=== PATIENT | male | born 1940 | race Caucasian/White ===

== ENCOUNTER 2021-05-05 10:21 | Inpatient (IN) | payer MEDICARE, OTHER ==
[2021-05-05] VITALS (7 sets, daily range): BP systolic 94–116; BP diastolic 46–67
[~2021-05-05] VITALS: Ht 172.7 cm; Wt 83.0 kg
[2021-05-05 12:36] LABS: HEMOGLOBIN 11.9 gm/dL (14.0-18.0); MCH 29.1 pg (26.0-34.0); MCHC 32.1 g/dL (28.0-37.0); MCV 90.6 fL (80.0-100.0); MPV 10.2 fl. (7.2-11.1); RBC 4.08 mil/uL (4.50-6.00); RDW-CV 16.2 % (10.5-14.5)
[2021-05-05 12:46] LABS: CALCIUM 8.5 mg/dL (8.5-10.1); CREATININE 1.8 mg/dL (0.6-1.3)
[2021-05-05] MEDS ORDERED: ELIQUIS5 MG PO (13:52)
[2021-05-05] MEDS ORDERED: LIPITOR80 MG PO (13:52)
[2021-05-05] MEDS ORDERED: JARDIANCE10 MG PO (13:53)
[2021-05-05] MEDS ORDERED: LANTUS SUBQ (13:54)
[2021-05-05] MEDS ORDERED: SALONPAS1 EACH TRANSDERM (14:01)
[2021-05-05] MEDS ORDERED: PROAIR HFA8.5 GM INH (14:05)
[2021-05-05] MEDS ORDERED: TUMS200 MG PO (14:15)
[2021-05-05] MEDS ORDERED: VITAMIN D350 MCG PO (14:26)
[2021-05-05 15:44] LABS: URINE BLOOD 3+ (Negative); URINE CLARITY CLOUDY; URINE COLOR DARK YELLOW; URINE GLUCOSE-RANDOM 1+ (Negative); URINE KETONES NEGATIVE (Negative); URINE LEUKOCYTES-REFLEX 1+ (Negative); URINE NITRITE-REFLEX NEGATIVE (Negative); URINE PROTEIN 1+ (Negative); URINE SPECIFIC GRAVITY 1.025 (1.005-1.030); URINE UROBILINOGEN 0.2 E.U./dl (0.2-1.0)
[2021-05-05 15:45] LABS: HEMATOCRIT 35.3 % (42.0-52.0); HEMOGLOBIN 11.6 gm/dL (14.0-18.0); MCH 29.3 pg (26.0-34.0); MCHC 32.8 g/dL (28.0-37.0); MCV 89.4 fL (80.0-100.0); MPV 10.5 fl. (7.2-11.1); NUCLEATED RBCS 0 /100WBC; PLATELET COUNT* 174 thou/uL (150-400); RBC 3.95 mil/uL (4.50-6.00); RDW-CV 15.9 % (10.5-14.5); WBC 18.6 thou/uL (4.0-11.0)
[2021-05-05 15:45] LABS: URINE BILIRUBIN 1+ (Negative)
[2021-05-05 15:47] LABS: ICTOTEST (BILI CONFIRMATORY) Negative (Negative)
[2021-05-05 15:52] LABS: BACTERIA-REFLEX 1-9 Few /HPF (None Seen); CASTS None Seen /LPF (None Seen); CRYSTALS None Seen /LPF (None Seen); MUCUS 0-3 Light strn/LPF (None Seen); SQUAMOUS 4-10 Moderate /LPF (0-3); URINE RBC >20 Many /HPF (0-2); URINE WBC-REFLEX 6-15 Few /HPF (0-5)
[2021-05-05 15:56] LABS: ALBUMIN 1.6 g/dL (3.4-5.0); CALCIUM 8.4 mg/dL (8.5-10.1); CREATININE 1.8 mg/dL (0.6-1.3); MAGNESIUM 2.7 mg/dL (1.8-2.4); TOTAL BILIRUBIN 0.6 mg/dL (<0.1-1.0); TOTAL PROTEIN 6.7 g/dL (6.4-8.2)
[2021-05-05 16:00] LABS: POTASSIUM 2.9 mmol/L (3.5-5.1)
[2021-05-05 16:13] LABS: ABSOLUTE LYMPHOCYTES 2.6 thou/uL (0.8-5.3); ABSOLUTE MONOCYTES 0.7 thou/uL (0.0-1.2); ABSOLUTE NEUTROPHILS 15.3 thou/uL (1.6-8.1); MICROCYTES Occasional; PLATELET ESTIMATE ADEQUATE
[2021-05-05 16:14] LABS: LARGE PLATELETS RARE
[2021-05-06] VITALS: BP 110/51
[2021-05-06 04:00] VITALS: BP 97/50
[2021-05-06 04:12] LABS: HEMATOCRIT 31.9 % (42.0-52.0); HEMOGLOBIN 10.5 gm/dL (14.0-18.0); MCH 29.1 pg (26.0-34.0); MCHC 32.8 g/dL (28.0-37.0); MCV 88.5 fL (80.0-100.0); MPV 10.4 fl. (7.2-11.1); RBC 3.61 mil/uL (4.50-6.00); RDW-CV 16.4 % (10.5-14.5); WBC 15.8 thou/uL (4.0-11.0)
[2021-05-06 04:34] LABS: ALBUMIN 1.5 g/dL (3.4-5.0); APTT 32.3 Seconds (25.0-31.3); INR 1.8; POTASSIUM 3.4 mmol/L (3.5-5.1); PROTIME 17.9 Seconds (9.20-11.50); TOTAL BILIRUBIN 1.1 mg/dL (<0.1-1.0)
[2021-05-06 08:00] VITALS: BP 102/57
[2021-05-06 11:24] LABS: CALCIUM 8.3 mg/dL (8.5-10.1); POTASSIUM 4.1 mmol/L (3.5-5.1)
[2021-05-06 12:07] VITALS: BP 106/58
[2021-05-06 17:41] VITALS: BP 110/63
[2021-05-06 18:03] LABS: CALCIUM 8.2 mg/dL (8.5-10.1); CREATININE 1.9 mg/dL (0.6-1.3); POTASSIUM 3.3 mmol/L (3.5-5.1)
[2021-05-06 20:00] VITALS: BP 125/71
[2021-05-07] VITALS: BP 113/60
[2021-05-07 03:01] LABS: CALCIUM 8.1 mg/dL (8.5-10.1); CREATININE 1.8 mg/dL (0.6-1.3); POTASSIUM 3.4 mmol/L (3.5-5.1)
[2021-05-07 04:00] VITALS: BP 105/55
[2021-05-07 09:02] VITALS: BP 105/70
[2021-05-07 10:43] LABS: CREATININE 1.8 mg/dL (0.6-1.3); POTASSIUM 3.3 mmol/L (3.5-5.1)
[2021-05-07 10:55] LABS: HEMOGLOBIN 9.8 gm/dL (14.0-18.0); MCH 29.1 pg (26.0-34.0); PLATELET COUNT* 132 thou/uL (150-400)
[2021-05-07 10:56] LABS: ABSOLUTE EOSINOPHILS 0.1 thou/uL (0.0-0.7); ABSOLUTE LYMPHOCYTES 0.5 thou/uL (0.8-5.3); ABSOLUTE NEUTROPHILS 12.9 thou/uL (1.6-8.1); BASOPHILS 0.1 %; EOSINOPHILS 0.6 %; LYMPHOCYTES 3.5 %; MCHC 32.5 g/dL (28.0-37.0); MCV 89.4 fL (80.0-100.0); MONOCYTES 0.1 %; MPV 10.7 fl. (7.2-11.1); NUCLEATED RBCS 0 /100WBC; POLYS 95.7 %; RBC 3.35 mil/uL (4.50-6.00); RDW-CV 16.1 % (10.5-14.5); WBC 13.5 thou/uL (4.0-11.0)
[2021-05-07 13:00] VITALS: BP 111/59
[2021-05-07 18:56] VITALS: BP 95/50
[2021-05-07 19:26] LABS: CREATININE 1.8 mg/dL (0.6-1.3)
[2021-05-07 20:00] VITALS: BP 100/52
[2021-05-08] VITALS (7 sets, daily range): BP systolic 108–165; BP diastolic 52–113
[2021-05-08 15:29] LABS: ABSOLUTE EOSINOPHILS 0.1 thou/uL (0.0-0.7); ABSOLUTE LYMPHOCYTES 0.5 thou/uL (0.8-5.3); ABSOLUTE MONOCYTES 0.5 thou/uL (0.0-1.2); ABSOLUTE NEUTROPHILS 6.4 thou/uL (1.6-8.1); BASOPHILS 0.3 %; EOSINOPHILS 0.8 %; HEMATOCRIT 41.5 % (42.0-52.0); MCH 29.2 pg (26.0-34.0); MCHC 32.6 g/dL (28.0-37.0); MCV 89.7 fL (80.0-100.0); MONOCYTES 7.2 %; MPV 9.9 fl. (7.2-11.1); NUCLEATED RBCS 0 /100WBC; PLATELET COUNT* 86 thou/uL (150-400); POLYS 84.7 %; RBC 4.62 mil/uL (4.50-6.00); RDW-CV 17.1 % (10.5-14.5); WBC 7.6 thou/uL (4.0-11.0)
[2021-05-08 15:36] LABS: HEMOGLOBIN 13.5 gm/dL (14.0-18.0)
[2021-05-08 15:37] LABS: CALCIUM 7.7 mg/dL (8.5-10.1); CREATININE 1.5 mg/dL (0.6-1.3); POTASSIUM 3.2 mmol/L (3.5-5.1)
[2021-05-09 02:18] VITALS: BP 132/78
[2021-05-09 04:46] VITALS: BP 110/70
[2021-05-09 08:00] VITALS: BP 125/74
[2021-05-09 08:36] LABS: ABSOLUTE EOSINOPHILS 0.1 thou/uL (0.0-0.7); ABSOLUTE LYMPHOCYTES 0.9 thou/uL (0.8-5.3); BASOPHILS 0.3 %; EOSINOPHILS 0.9 %; HEMATOCRIT 27.1 % (42.0-52.0); LYMPHOCYTES 6.4 %; MCH 29.5 pg (26.0-34.0); MCHC 33.5 g/dL (28.0-37.0); MONOCYTES 7.2 %; MPV 10.4 fl. (7.2-11.1); NUCLEATED RBCS 0 /100WBC; PLATELET COUNT* 133 thou/uL (150-400); POLYS 85.2 %; RBC 3.08 mil/uL (4.50-6.00); WBC 14.1 thou/uL (4.0-11.0)
[2021-05-09 08:38] LABS: HEMOGLOBIN 9.1 gm/dL (14.0-18.0)
[2021-05-09 08:56] LABS: CALCIUM 7.8 mg/dL (8.5-10.1); CREATININE 1.2 mg/dL (0.6-1.3); POTASSIUM 3.7 mmol/L (3.5-5.1)
[2021-05-09 12:02] VITALS: BP 118/67
[2021-05-09 15:46] VITALS: BP 138/74
[2021-05-09 20:58] VITALS: BP 139/80
[2021-05-09 22:17] LABS: CALCIUM 7.9 mg/dL (8.5-10.1); CREATININE 1.2 mg/dL (0.6-1.3); POTASSIUM 3.7 mmol/L (3.5-5.1)
[2021-05-10] VITALS (7 sets, daily range): BP systolic 125–142; BP diastolic 66–91
[2021-05-10 05:52] LABS: HEMATOCRIT 30.7 % (42.0-52.0); HEMOGLOBIN 10.2 gm/dL (14.0-18.0); MCH 29.1 pg (26.0-34.0); MCHC 33.2 g/dL (28.0-37.0); MCV 87.5 fL (80.0-100.0); MPV 10.3 fl. (7.2-11.1); NUCLEATED RBCS 0 /100WBC; PLATELET COUNT* 132 thou/uL (150-400); RBC 3.51 mil/uL (4.50-6.00); RDW-CV 15.8 % (10.5-14.5); WBC 12.6 thou/uL (4.0-11.0)
[2021-05-10 06:08] LABS: CALCIUM 7.9 mg/dL (8.5-10.1); CREATININE 1.1 mg/dL (0.6-1.3)
[2021-05-10 06:52] LABS: ABSOLUTE EOSINOPHILS 0.1 thou/uL (0.0-0.7); ABSOLUTE LYMPHOCYTES 0.9 thou/uL (0.8-5.3); ABSOLUTE MONOCYTES 0.9 thou/uL (0.0-1.2); ABSOLUTE NEUTROPHILS 10.7 thou/uL (1.6-8.1); PLATELET ESTIMATE ADEQUATE
[2021-05-11] VITALS: BP 135/82
[2021-05-11 04:00] VITALS: BP 151/83
[2021-05-11 05:22] LABS: ABSOLUTE EOSINOPHILS 0.1 thou/uL (0.0-0.7); ABSOLUTE LYMPHOCYTES 1.1 thou/uL (0.8-5.3); ABSOLUTE NEUTROPHILS 10.1 thou/uL (1.6-8.1); BASOPHILS 0.3 %; EOSINOPHILS 0.9 %; HEMATOCRIT 30.4 % (42.0-52.0); HEMOGLOBIN 9.9 gm/dL (14.0-18.0); MCH 29.1 pg (26.0-34.0); MCHC 32.6 g/dL (28.0-37.0); MCV 89.3 fL (80.0-100.0); MONOCYTES 7.9 %; MPV 10.5 fl. (7.2-11.1); NUCLEATED RBCS 0 /100WBC; PLATELET COUNT* 124 thou/uL (150-400); POLYS 81.9 %; RBC 3.41 mil/uL (4.50-6.00); RDW-CV 16.2 % (10.5-14.5); WBC 12.4 thou/uL (4.0-11.0)
[2021-05-11 05:40] LABS: ALBUMIN 1.4 g/dL (3.4-5.0); CALCIUM 7.5 mg/dL (8.5-10.1); POTASSIUM 3.2 mmol/L (3.5-5.1); TOTAL BILIRUBIN 0.6 mg/dL (<0.1-1.0); TOTAL PROTEIN 5.7 g/dL (6.4-8.2)
[2021-05-11 08:30] VITALS: BP 144/78
[2021-05-11 12:00] VITALS: BP 146/78
[2021-05-11 16:00] VITALS: BP 109/56
[2021-05-11 20:05] VITALS: BP 136/76
[2021-05-12 04:00] VITALS: BP 130/76
[2021-05-12 06:11] VITALS: BP 130/76
[2021-05-12 06:33] LABS: ABSOLUTE BASOPHILS 0.1 thou/uL (0.0-0.2); ABSOLUTE EOSINOPHILS 0.2 thou/uL (0.0-0.7); ABSOLUTE LYMPHOCYTES 1.3 thou/uL (0.8-5.3); ABSOLUTE MONOCYTES 0.8 thou/uL (0.0-1.2); ABSOLUTE NEUTROPHILS 8.2 thou/uL (1.6-8.1); BASOPHILS 0.5 %; EOSINOPHILS 1.6 %; HEMATOCRIT 30.9 % (42.0-52.0); HEMOGLOBIN 10.4 gm/dL (14.0-18.0); LYMPHOCYTES 11.9 %; MCH 30.2 pg (26.0-34.0); MCHC 33.7 g/dL (28.0-37.0); MCV 89.5 fL (80.0-100.0); MONOCYTES 7.5 %; MPV 10.4 fl. (7.2-11.1); NUCLEATED RBCS 0 /100WBC; PLATELET COUNT* 134 thou/uL (150-400); POLYS 78.5 %; RBC 3.46 mil/uL (4.50-6.00); RDW-CV 16.3 % (10.5-14.5); WBC 10.5 thou/uL (4.0-11.0)
[2021-05-12 06:45] LABS: ALBUMIN 1.6 g/dL (3.4-5.0); CALCIUM 7.1 mg/dL (8.5-10.1); POTASSIUM 3.8 mmol/L (3.5-5.1); TOTAL BILIRUBIN 0.6 mg/dL (<0.1-1.0); TOTAL PROTEIN 5.2 g/dL (6.4-8.2)
--- NOTE | 2021-05-12 11:02 | CON ---
[address] [address] CONSULTATION Name: DHAVAL REYES Room: [address] ADM IN M.R.#: [id number] Admission: 05/05/21 Attend Phys: Raghavendra Solo Discharge: Date of : 44 Report #: [id number] THIS REPORT FOR: cc: THERESE - Family physician unknown THERESE - Family physician unknown Ruben Clayton MD ~ DATE OF CONSULTATION: 05/10/2021 REQUESTING PHYSICIAN: ____ HISTORY OF PRESENT ILLNESS: The patient creatinine is down to 1.1. Serum sodium was as high as 164 on 05/06/2021 and now it is down to 155. 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 SOCIAL HISTORY: No current tobacco or alcohol abuse. FAMILY HISTORY: Negative for renal disease. MEDICATIONS: Reviewed. REVIEW OF SYSTEMS: Unobtainable due to aphasia. PHYSICAL EXAMINATION: GENERAL: He is awake. VITAL SIGNS: Blood pressure 125/66, heart rate 115, afebrile. HEENT: Pupils are round. NECK: Supple. LUNGS: Decreased air movements. Very poor inspiratory effort. CARDIOVASCULAR: Tachycardia. ABDOMEN: Soft. EXTREMITIES: Lower extremities with some edema. LABORATORY DATA: As I mentioned earlier serum sodium now is 155. BUN 33, creatinine 1.1. ASSESSMENT: 1. Hypernatremia with free water deficit. 2. Very poor p.o. intake due to cerebrovascular accident. 3. Recent cerebrovascular accident with residual aphasia and weakness. 4. Protein malnutrition. [address] [address] CONSULTATION Name: DHAVAL REYES Room: [address] IN .R.#: [id number] Admission: 05/05/21 Attend Phys: Raghavendra Solo Discharge: Date of : 44 Report #: [id number] PLAN: 1. Continue with D5W. We will increase rate to 125 mL an hour. 2. Consider either hospice care or placement of PEG tube with adequate feeding and free water supplement through the PEG tube. Discussed with his nurse. <ELECTRONICALLY SIGNED> By: Ruben Clayton MD 05/12/21 1102 [id number] Clayton MD /nt
[2021-05-12 16:00] VITALS: BP 141/82
[2021-05-12 19:56] VITALS: BP 125/66
[2021-05-13] VITALS: BP 152/68
[2021-05-13 04:00] VITALS: BP 134/74
[2021-05-13 04:37] LABS: ABSOLUTE EOSINOPHILS 0.2 thou/uL (0.0-0.7); ABSOLUTE LYMPHOCYTES 1.3 thou/uL (0.8-5.3); ABSOLUTE MONOCYTES 0.7 thou/uL (0.0-1.2); BASOPHILS 0.4 %; EOSINOPHILS 1.6 %; HEMATOCRIT 28.6 % (42.0-52.0); HEMOGLOBIN 9.6 gm/dL (14.0-18.0); LYMPHOCYTES 12.3 %; MCH 30.2 pg (26.0-34.0); MCHC 33.6 g/dL (28.0-37.0); MCV 89.8 fL (80.0-100.0); MONOCYTES 7.1 %; MPV 10.6 fl. (7.2-11.1); NUCLEATED RBCS 0 /100WBC; PLATELET COUNT* 126 thou/uL (150-400); POLYS 78.6 %; RBC 3.18 mil/uL (4.50-6.00); RDW-CV 16.4 % (10.5-14.5); WBC 10.2 thou/uL (4.0-11.0)
[2021-05-13 04:39] LABS: PREALBUMIN 18.8 mg/dL (18.0-35.7)
[2021-05-13 04:48] LABS: ALBUMIN 1.5 g/dL (3.4-5.0); CALCIUM 7.1 mg/dL (8.5-10.1); CREATININE 0.8 mg/dL (0.6-1.3); TOTAL BILIRUBIN 0.7 mg/dL (<0.1-1.0); TOTAL PROTEIN 5.5 g/dL (6.4-8.2)
[2021-05-13 04:55] LABS: POTASSIUM 2.6 mmol/L (3.5-5.1)
[2021-05-13 08:09] VITALS: BP 96/55
[2021-05-13 11:37] VITALS: BP 141/65
[2021-05-13 15:56] VITALS: BP 139/64
[2021-05-13 20:13] VITALS: BP 119/56
[2021-05-14 01:02] VITALS: BP 136/65
[2021-05-14 04:00] VITALS: BP 126/57
[2021-05-14 07:09] LABS: HEMATOCRIT 33.6 % (42.0-52.0); HEMOGLOBIN 11.1 gm/dL (14.0-18.0); MCH 29.8 pg (26.0-34.0); MCHC 32.9 g/dL (28.0-37.0); MCV 90.3 fL (80.0-100.0); MPV 10.5 fl. (7.2-11.1); NUCLEATED RBCS 0 /100WBC; PLATELET COUNT* 125 thou/uL (150-400); RBC 3.72 mil/uL (4.50-6.00); RDW-CV 16.6 % (10.5-14.5); WBC 9.3 thou/uL (4.0-11.0)
[2021-05-14 07:18] LABS: ALBUMIN 1.6 g/dL (3.4-5.0); CALCIUM 7.1 mg/dL (8.5-10.1); CREATININE 0.8 mg/dL (0.6-1.3); POTASSIUM 3.6 mmol/L (3.5-5.1); TOTAL BILIRUBIN 0.7 mg/dL (<0.1-1.0); TOTAL PROTEIN 5.1 g/dL (6.4-8.2)
[2021-05-14] MEDS ORDERED: AUGMENTIN600 MG/5 M PO (07:24)
[2021-05-14] MEDS ORDERED: CARDIZEM60 MG PO (07:24)
[2021-05-14 07:49] LABS: ABSOLUTE LYMPHOCYTES 1.1 thou/uL (0.8-5.3); ABSOLUTE NEUTROPHILS 7.1 thou/uL (1.6-8.1)
[2021-05-14 07:50] LABS: ABSOLUTE EOSINOPHILS 0.2 thou/uL (0.0-0.7); ABSOLUTE MONOCYTES 0.9 thou/uL (0.0-1.2); PLATELET ESTIMATE ADEQUATE
[2021-05-14 08:00] VITALS: BP 126/57
[2021-05-14 20:00] VITALS: BP 107/62
[2021-05-15] VITALS: BP 135/70
[2021-05-15 04:00] VITALS: BP 118/50
[2021-05-15 06:40] LABS: ABSOLUTE BASOPHILS 0.1 thou/uL (0.0-0.2); ABSOLUTE EOSINOPHILS 0.2 thou/uL (0.0-0.7); ABSOLUTE LYMPHOCYTES 1.1 thou/uL (0.8-5.3); ABSOLUTE MONOCYTES 0.9 thou/uL (0.0-1.2); ABSOLUTE NEUTROPHILS 6.7 thou/uL (1.6-8.1); BASOPHILS 0.7 %; HEMATOCRIT 29.9 % (42.0-52.0); HEMOGLOBIN 9.9 gm/dL (14.0-18.0); LYMPHOCYTES 12.2 %; MCH 29.8 pg (26.0-34.0); MCHC 33.1 g/dL (28.0-37.0); MCV 89.9 fL (80.0-100.0); MONOCYTES 9.7 %; MPV 10.9 fl. (7.2-11.1); NUCLEATED RBCS 0 /100WBC; PLATELET COUNT* 138 thou/uL (150-400); POLYS 75.4 %; RBC 3.33 mil/uL (4.50-6.00); RDW-CV 15.9 % (10.5-14.5); WBC 8.9 thou/uL (4.0-11.0)
[2021-05-15 06:48] LABS: ALBUMIN 1.7 g/dL (3.4-5.0); CALCIUM 7.7 mg/dL (8.5-10.1); CREATININE 0.9 mg/dL (0.6-1.3); POTASSIUM 3.3 mmol/L (3.5-5.1); TOTAL BILIRUBIN 0.8 mg/dL (<0.1-1.0); TOTAL PROTEIN 5.3 g/dL (6.4-8.2)
[2021-05-15 12:00] VITALS: BP 125/65
[2021-05-15] MEDS ORDERED: PROBIOTIC1 EAC7 PO (12:57)
[2021-05-15] MEDS ORDERED: NEURONTIN100 MG PO (12:57)
[2021-05-15 16:00] VITALS: BP 114/56
[2021-05-15 20:30] VITALS: BP 107/58
[2021-05-16] VITALS: BP 127/68
[2021-05-16 04:00] VITALS: BP 134/80
[2021-05-16 08:00] VITALS: BP 118/66
[2021-05-16 12:00] VITALS: BP 126/59
[2021-05-16 12:51] LABS: ALBUMIN 1.6 g/dL (3.4-5.0); CALCIUM 7.5 mg/dL (8.5-10.1); CREATININE 0.7 mg/dL (0.6-1.3); POTASSIUM 3.4 mmol/L (3.5-5.1); TOTAL BILIRUBIN 0.6 mg/dL (<0.1-1.0); TOTAL PROTEIN 4.9 g/dL (6.4-8.2)
[2021-05-16 15:53] VITALS: BP 119/68
[2021-05-16 20:00] VITALS: BP 127/70
[2021-05-17] VITALS (7 sets, daily range): BP systolic 122–131; BP diastolic 58–71
[2021-05-17 04:21] LABS: ABSOLUTE BASOPHILS 0.1 thou/uL (0.0-0.2); ABSOLUTE EOSINOPHILS 0.3 thou/uL (0.0-0.7); ABSOLUTE LYMPHOCYTES 1.4 thou/uL (0.8-5.3); ABSOLUTE MONOCYTES 1.3 thou/uL (0.0-1.2); ABSOLUTE NEUTROPHILS 7.5 thou/uL (1.6-8.1); BASOPHILS 0.9 %; EOSINOPHILS 3.2 %; HEMATOCRIT 27.4 % (42.0-52.0); HEMOGLOBIN 9.2 gm/dL (14.0-18.0); LYMPHOCYTES 12.9 %; MCH 30.2 pg (26.0-34.0); MCHC 33.7 g/dL (28.0-37.0); MCV 89.7 fL (80.0-100.0); MONOCYTES 12.1 %; MPV 9.9 fl. (7.2-11.1); NUCLEATED RBCS 0 /100WBC; PLATELET COUNT* 119 thou/uL (150-400); POLYS 70.9 %; RBC 3.06 mil/uL (4.50-6.00); RDW-CV 16.5 % (10.5-14.5); WBC 10.6 thou/uL (4.0-11.0)
[2021-05-17 04:42] LABS: ALBUMIN 1.5 g/dL (3.4-5.0); CALCIUM 7.8 mg/dL (8.5-10.1); CREATININE 0.7 mg/dL (0.6-1.3); TOTAL BILIRUBIN 0.8 mg/dL (<0.1-1.0); TOTAL PROTEIN 5.7 g/dL (6.4-8.2)
== END 2021-05-17 14:55 | DRG 871 ==
LOC: M.PRE 10:21 → M.2W 12:06 → M.TBA 12:06 → M.2W 18:22
PROVIDERS: Anesthesiology; Internal Medicine; Nurse Practitioner Family; ADMIT Surgery; ATTEND Surgery
PROC: 05HC33Z Insertion of Infusion Device into Left Basilic Vein, Percutaneous Approach (ICD-10-PCS; principal; 2021-05-05)
PROC: 0DH68UZ Insertion of Feeding Device into Stomach, Via Natural or Artificial Opening Endoscopic (ICD-10-PCS; 2021-05-12)
DX: A41.9 Sepsis, unspecified organism (principal); E43 Unspecified severe protein-calorie malnutrition; N39.0 Urinary tract infection, site not specified; K81.0 Acute cholecystitis; E87.0 Hyperosmolality and hypernatremia; R47.01 Aphasia; I69.354 Hemiplegia and hemiparesis following cerebral infarction affecting left non-dominant side; N17.9 Acute kidney failure, unspecified; Z20.822 Contact with and (suspected) exposure to COVID-19; I48.91 Unspecified atrial fibrillation; I95.9 Hypotension, unspecified; B37.9 Candidiasis, unspecified; N18.9 Chronic kidney disease, unspecified; R13.10 Dysphagia, unspecified; E11.22 Type 2 diabetes mellitus with diabetic chronic kidney disease